=== PATIENT | female | born 1980 | race Caucasian/White ===

== ENCOUNTER 2021-03-20 13:46 | Emergency (ER) | payer BC, OTHER, SELFPAY ==
[2021-03-20 14:08] VITALS: BP 125/86; PULSE 95; RESP 18; TEMP 37.5; O2SAT 100; BMI 27.4
[2021-03-20 15:49] VITALS: BP 104/70; PULSE 85; TEMP 37.6; O2SAT 99
--- NOTE | 2021-03-20 15:59 | CTR_ITS ---
PROCEDURE INFORMATION: Exam: CT Abdomen And Pelvis With Contrast Exam date and time: 03/20/2021 3:59 PM Age: 41 years old Clinical indication: Abdominal pain; Prior surgery; Surgery date: 6+ months; Surgery type: Partial hysterectomy; Patient HX: Lower ab pain; Additional info: Rlq and llq abdominal pain, rebound tenderness TECHNIQUE: Imaging protocol: Computed tomography of the abdomen and pelvis with contrast. Radiation optimization: All CT scans at this facility use at least one of these dose optimization techniques: automated exposure control; mA and/or kV adjustment per patient size (includes targeted exams where dose is matched to clinical indication); or iterative reconstruction. Contrast material: OMNI 300; Contrast volume: 95 ml; Contrast route: INTRAVENOUS (IV); COMPARISON: CT abdomen pelvis w con* [id number] 01/26/2018 3:22 PM RADIATION DOSE METRICS: Total DLP (mGy-cm): 1332.33 FINDINGS: Liver: Normal. No mass. Gallbladder and bile ducts: Fluid-distended gallbladder. No wall thickening. The bile ducts are normal. Pancreas: Normal. No ductal dilation. Spleen: Normal. No splenomegaly. Adrenal glands: Normal. No mass. Kidneys and ureters: 3 mm nonobstructing inferior left renal calculus. New 2.1 cm cortical lesion in the anterior left kidney, Hounsfield units 24. Right kidney is unremarkable. No ureteral calculus or hydronephrosis. Stomach and bowel: Diverticulosis of the distal colon. Inflammation and fat stranding surrounding a single diverticulum in the mid sigmoid colon, consistent with acute diverticulitis. The remainder of the colon is unremarkable. The stomach and small bowel are normal. No obstruction. Appendix: The appendix is visualized and is normal. Intraperitoneal space: Mild pelvic ascites. No free air. Vasculature: Unremarkable. No abdominal aortic aneurysm. Lymph nodes: Unremarkable. No enlarged lymph nodes. Urinary bladder: Unremarkable as visualized. Reproductive: The uterus is absent. Normal ovaries with small follicles. Bones/joints: Unremarkable. No acute fracture. Soft tissues: Unremarkable. CT/CT abdomen pelvis w con* [id number] IMPRESSION: 1. Acute sigmoid diverticulitis. 2. New 2.1 cm cortical lesion in the left kidney, Hounsfield units 24. This does not meet the criteria for a simple benign cyst. Recommend non-emergent MRI without and with contrast or non-emergent CT without and with contrast. MRI is preferred for masses under 1.5 cm. 3. Nonobstructing left renal calculus. COMMENTS: Consistent with the [employer]'s Incidental Findings Committee white paper (J Am Edd Radiol 2018): Any incidental renal lesion less than 1 cm or classified as too small to characterize, or any incidental cystic renal lesion characterized as simple-appearing, is likely benign. No follow-up imaging is recommended for these lesions per consensus recommendations based on imaging criteria.
--- NOTE | 2021-03-20 16:01 | ED_ITS ---
Documented by User: MANOLO Gillespie 03/21/21 09:15 HPI - Abdominal Pain General: Chief Complaint: Abdominal Pain Stated Complaint: Abd Pain, rebound Tenderness, high wbc Time Seen by Provider: 03/20/21 15:52 History of Present Illness: Patient is a 41-year-old female comes to the ED with abdominal pain. Patient says symptoms started approximately 3 days ago. Patient was seen at [facility] earlier today and had an elevated white blood cell count and rebound tenderness of the abdomen so they sent her here to the ED for further evaluation. Today the abdominal pain got worse. Pain is described as a sharp pain in both right and left lower abdomen. Pain is rated currently an 8 out of 10. No improving or worsening factors noted. Shas nausea but denies any episodes of emesis. Patient has had some past medical history of endometriosis. She endorses feeling a little bit of pain in her bladder when she urinates. Denies any hematuria, vaginal bleeding, vaginal discharge, diarrhea, blood in stool. Associated Symptoms: Reports dysuria (Pain in bladder when urinating.) and nausea; Denies chills, constipation, diarrhea, fever(s), hematochezia, hematuria and vomiting Review of Systems Const: Denies: fever(s), chills or fatigue Eyes: Denies: change in vision or eye discomfort ENMT: Denies: throat pain, odynophagia, nasal discharge or nasal congestion Card: Denies: chest pain, palpitations, edema, swelling of feet/ankles, dyspnea on exertion or orthopnea Resp: Denies: dyspnea, productive cough or non-productive cough GI: Reports: abdominal pain and nausea; Denies: vomiting, diarrhea, constipation or hematochezia : Reports: dysuria (Pain in bladder when urinating.); Denies: flank pain, hematuria, vaginal bleeding or vaginal discharge Musc: Denies: neck pain, back pain or extremity swelling Skin/Breast: Denies: rash or new lesions Neuro: Denies: headache(s), numbness in extremities or weakness in extremities PFS ED PFSH: Medical History Endometriosis Family History Daughter No problems noted. Family/Other Diabetes paternal uncle Cancer of kidney paternal uncle Heart disease paternal aunt, paternal uncle Hypertension paternal aunt, paternal uncle CAD (coronary artery disease) paternal uncle Stroke paternal uncle Father Heart disease Hypertension CAD (coronary artery disease) Social History Smoking and tobacco status: never smoked Alcohol intake: never Female Reproductive History: Para: 2 Spontaneous abortions: Yes (1) Physical Exam Const: COMMON NORMALS: patient oriented x3 and alert GENERAL APPEARANCE: cooperative HENMT: COMMON NORMALS: normocephalic HEAD & SCALP: normocephalic MOUTH: Normal oral and palatal mucosa present THROAT: posterior oropharynx normal and uvula midline Eye: COMMON NORMALS: Equal, round and reactive pupils present and conjunctivae normal CONJUNCTIVA: Yes conjunctivae normal PUPIL: Yes Equal, round and reactive pupils present Neck/C-Spine: COMMON NORMALS: supple GENERAL: Yes normal visual inspection Resp: COMMON NORMALS: normal respiratory effort, No retractions, No use of accessory muscles and clear to auscultation bilaterally AUSCULTATION: clear to auscultation bilaterally Cardio: COMMON NORMALS: regular rate, regular rhythm, S1 normal heart sound present, S2 normal heart sound present, No gallops present (Cardio), No clicks present (Cardio), No murmurs present (Cardio) and Peripheral pulses 2+ throughout RATE: regular rate RHYTHM: regular rhythm HEART SOUNDS: S1 normal heart sound present and S2 normal heart sound present PERIPHERAL PULSES: Peripheral pulses 2+ throughout GI: COMMON NORMALS: Normal to inspection, nondistended, normoactive bowel sounds present, Soft to palpation and no masses PALPATION: Yes Soft to palpation, Yes Tenderness to palpation present (GI) Details: LLQ and RLQ and Yes Rebound tenderness present Details: other (Right and left lower abdomen) : COMMON NORMALS: Yes no CVA tenderness BLADDER/KIDNEY EXAM: Yes no CVA tenderness Back/Pelvis: COMMON NORMALS: no CVA tenderness Extremity: COMMON NORMALS: normal to inspection Neuro: COMMON NORMALS: patient oriented x3 SENSORIUM/ORIENTATION: Yes alert GAIT: Yes Normal gait present Skin: GENERAL SKIN EXAM: dry skin Course Vital Signs: Vital signs: Vital Signs Temperature 99.6 F 03/20/21 15:49 Pulse Rate 85 03/20/21 15:49 Respiratory Rate 16 03/20/21 16:45 Blood Pressure 104/70 03/20/21 15:49 Pulse Oximetry 99 03/20/21 15:49 MDM - Abdominal Pain Lab Data I reviewed the patient's lab results. : 03/20/21 18:00 03/20/21 18:00 Labs/Radiology: Radiology Impressions Abdomen/Pelvis CT 03/20/21 15:59 IMPRESSION: 1. Acute sigmoid diverticulitis. 2. New 2.1 cm cortical lesion in the left kidney, Hounsfield units 24. This does not meet the criteria for a simple benign cyst. Recommend non-emergent MRI without and with contrast or non-emergent CT without and with contrast. MRI is preferred for masses under 1.5 cm. 3. Nonobstructing left renal calculus. COMMENTS: Consistent with the [employer]'s Incidental Findings Committee white paper (J Am Edd Radiol 2018): Any incidental renal lesion less than 1 cm or classified as too small to characterize, or any incidental cystic renal lesion characterized as simple-appearing, is likely benign. No follow-up imaging is recommended for these lesions per consensus recommendations based on imaging criteria. Laboratory Results WBC 11.1 10^3/uL (4.0-10.0) H 03/20/21 18:00 RBC 3.54 10^6/uL (4.1-5.3) L 03/20/21 18:00 Hgb 11.0 g/dL (11.5-15.3) L 03/20/21 18:00 Hct 34.9 % (37.0-47.0) L 03/20/21 18:00 MCV 98.6 fl (81-99) 03/20/21 18:00 MCH 31.1 pg (28.0-34.0) 03/20/21 18:00 MCHC 31.5 g/dL (30.0-36.0) 03/20/21 18:00 RDW 13.1 % (12.1-15.1) 03/20/21 18:00 Plt Count 347 10^3/cmm (130-400) 03/20/21 18:00 MPV 9.8 fL (7.4-10.4) 03/20/21 18:00 Neut % (Auto) 76.8 % 03/20/21 18:00 Lymph % (Auto) 14.1 % 03/20/21 18:00 [place] % (Auto) 7.9 % 03/20/21 18:00 Eos % (Auto) 0.6 % 03/20/21 18:00 Baso % (Auto) 0.3 % 03/20/21 18:00 Neut # (Auto) 8.50 10^3/uL (1.8-7.7) H 03/20/21 18:00 Lymph # (Auto) 1.6 10^3/uL (0.8-4.8) 03/20/21 18:00 [place] # (Auto) 0.9 10^3/uL (0.2-0.9) 03/20/21 18:00 Eos # (Auto) 0.1 10^3/uL (0.0-0.8) 03/20/21 18:00 Baso # (Auto) 0.0 10^3/uL (0.0-0.1) 03/20/21 18:00 Nucleated RBC % (auto) 0 % 03/20/21 18:00 Nucleated RBCs # 0.0 /100WBC 03/20/21 18:00 Sodium 134 mmol/L (136-145) L 03/20/21 18:00 Potassium 3.3 mmol/L (3.5-5.1) L 03/20/21 18:00 Chloride 100 mmol/L (98-107) 03/20/21 18:00 Carbon Dioxide 22 mmol/L (22-29) 03/20/21 18:00 Anion Gap 15.3 (5-19) 03/20/21 18:00 BUN 9 mg/dL (6-20) 03/20/21 18:00 Creatinine 0.6 mg/dL (0.5-0.9) 03/20/21 18:00 GFR Calculation 110.2 mL/min (90-130) 03/20/21 18:00 Glucose 79 mg/dL (65-115) 03/20/21 18:00 Calculated Osmolality 276 mOsm/kg (285-295) L 03/20/21 18:00 Calcium 9.1 mg/dL (8.5-10.5) 03/20/21 18:00 Total Bilirubin 0.2 mg/dL (0.15-1.2) 03/20/21 18:00 AST 12 U/L (0-32) 03/20/21 18:00 ALT 7 U/L (0-33) 03/20/21 18:00 Alkaline Phosphatase 85 IU/L (35-105) 03/20/21 18:00 C-Reactive Protein 103.7 mg/L (0.0-4.9) H 03/20/21 18:00 Total Protein 7.1 g/dL (6.6-8.7) 03/20/21 18:00 Albumin 4.0 g/dL (3.5-5.2) 03/20/21 18:00 Globulin 3.1 g/dL (1.3-4.6) 03/20/21 18:00 Lipase 29 U/L (13-60) 03/20/21 18:00 HCG, Qual Negative (Negative) 03/20/21 18:00 Discharge Plan Discharge Patient Disposition: Home Clinical Impression: Diverticulitis Condition: Stable Prescriptions: New Cipro 500 mg tablet 500 mg PO BID Qty: 14 0RF metronidazole 500 mg tablet 500 mg PO BID 7 Days Qty: 14 0RF hydrocodone-acetaminophen 5-325 mg tablet 1 tab PO Q6H PRN (Reason: pain) Qty: 7 0RF ondansetron 4 mg tablet,disintegrating 4 mg PO Q8H PRN (Reason: nausea and vomiting) Qty: 7 0RF No Action propranolol 20 mg tablet 20 mg PO DAILY 0RF triamterene-hydrochlorothiazid 37.5-25 mg tablet 1.5 tab PO DAILY 0RF Label Comments: 37.5mg/12.5mg 1.5 tablets daily docusate sodium [Colace] 100 mg capsule 100 mg PO DAILY 0RF Orilissa 150 mg tablet 150 mg PO DAILY Qty: 90 3RF ibuprofen 800 mg tablet 800 mg PO TID PRN (Reason: pain) Qty: 90 3RF Discharge Orders: Discharge ED (Routine); Ordered 03/20/21 Ordered By: Clint Paz Referrals: Donny Cho, [Primary Care Provider] - Discharge Diet: Advance as tolerated Discharge Activity: Increase activity as tolerated Patient Instructions: Diverticulitis (ED), Diverticulitis Diet (ED), Opioid Safety Activity Restrictions/Additional Instructions: Home and rest. Clear liquid diet for the next 24 hours then increase to a full liquid diet until pain resolves. Follow-up with primary care for further instruction. Return to the ER for worsening symptoms such as high fever greater than 100.4, or uncontrolled pain. Sign Out Sign Out Data: Patient Sign Out occurred on 03/20/21 at 17:02. Patient's care was discussed, and care was transferred from to Clint Paz. Post-Handoff Eval: Patient reported some mild pain and discomfort in the lower abdomen. Patient appeared mildly unwell. No acute distress was noted. 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 Family/Other Diabetes paternal uncle Cancer of kidney paternal uncle Heart disease paternal aunt, paternal uncle Hypertension paternal aunt, paternal uncle CAD (coronary artery disease) paternal uncle Stroke paternal uncle Father Heart disease Hypertension CAD (coronary artery disease) Social History Smoking and tobacco status: never smoked Alcohol intake: never Course Vital Signs: Vital signs: Vital Signs Temperature 99.6 F 03/20/21 15:49 Pulse Rate 85 03/20/21 15:49 Respiratory Rate 16 03/20/21 16:45 Blood Pressure 104/70 03/20/21 15:49 Pulse Oximetry 99 03/20/21 15:49 MDM - Abdominal Pain Medical Decision Making 41-year-old female was referred to the emergency room for evaluation of lower abdominal pain. Patient reports illness for 3 days. On exam abdomen was soft with some rebound tenderness in the lower abdomen. Bowel sounds were present. Skin was warm and dry. Vital signs were normal. Differential diagnosis includes but not limited to appendicitis, cystitis, constipation, diverticulitis. Patient had a reported fourteen thousand white count at the [facility] when she was referred to the ER. CT scan of the abdomen and pelvis noted acute sigmoid diverticulitis, a 2.1 cm cortical lesion to the left kidney, and nonobstructing left renal calculus. I feel the patient probably has diverticulitis which is suggestive of her exam and imaging. Patient be started on Cipro 500 mg twice a day for the next 7 days, and Flagyl 500 mg twice a day for the next 7 days. Patient will also be covered for pain with hydrocodone/acetaminophen 5-325 mg, and ondansetron for nausea and vomiting. Reviewed exam with patient with recommendations for treatment and follow-up. Lab Data : 03/20/21 18:00 03/20/21 18:00 Labs/Radiology: Radiology Impressions Abdomen/Pelvis CT 03/20/21 15:59 IMPRESSION: 1. Acute sigmoid diverticulitis. 2. New 2.1 cm cortical lesion in the left kidney, Hounsfield units 24. This does not meet the criteria for a simple benign cyst. Recommend non-emergent MRI without and with contrast or non-emergent CT without and with contrast. MRI is preferred for masses under 1.5 cm. 3. Nonobstructing left renal calculus. COMMENTS: Consistent with the [employer]'s Incidental Findings Committee white paper (J Am Edd Radiol 2018): Any incidental renal lesion less than 1 cm or classified as too small to characterize, or any incidental cystic renal lesion characterized as simple-appearing, is likely benign. No follow-up imaging is recommended for these lesions per consensus recommendations based on imaging criteria. Laboratory Results WBC 11.1 10^3/uL (4.0-10.0) H 03/20/21 18:00 RBC 3.54 10^6/uL (4.1-5.3) L 03/20/21 18:00 Hgb 11.0 g/dL (11.5-15.3) L 03/20/21 18:00 Hct 34.9 % (37.0-47.0) L 03/20/21 18:00 MCV 98.6 fl (81-99) 03/20/21 18:00 MCH 31.1 pg (28.0-34.0) 03/20/21 18:00 MCHC 31.5 g/dL (30.0-36.0) 03/20/21 18:00 RDW 13.1 % (12.1-15.1) 03/20/21 18:00 Plt Count 347 10^3/cmm (130-400) 03/20/21 18:00 MPV 9.8 fL (7.4-10.4) 03/20/21 18:00 Neut % (Auto) 76.8 % 03/20/21 18:00 Lymph % (Auto) 14.1 % 03/20/21 18:00 [place] % (Auto) 7.9 % 03/20/21 18:00 Eos % (Auto) 0.6 % 03/20/21 18:00 Baso % (Auto) 0.3 % 03/20/21 18:00 Neut # (Auto) 8.50 10^3/uL (1.8-7.7) H 03/20/21 18:00 Lymph # (Auto) 1.6 10^3/uL (0.8-4.8) 03/20/21 18:00 [place] # (Auto) 0.9 10^3/uL (0.2-0.9) 03/20/21 18:00 Eos # (Auto) 0.1 10^3/uL (0.0-0.8) 03/20/21 18:00 Baso # (Auto) 0.0 10^3/uL (0.0-0.1) 03/20/21 18:00 Nucleated RBC % (auto) 0 % 03/20/21 18:00 Nucleated RBCs # 0.0 /100WBC 03/20/21 18:00 Sodium 134 mmol/L (136-145) L 03/20/21 18:00 Potassium 3.3 mmol/L (3.5-5.1) L 03/20/21 18:00 Chloride 100 mmol/L (98-107) 03/20/21 18:00 Carbon Dioxide 22 mmol/L (22-29) 03/20/21 18:00 Anion Gap 15.3 (5-19) 03/20/21 18:00 BUN 9 mg/dL (6-20) 03/20/21 18:00 Creatinine 0.6 mg/dL (0.5-0.9) 03/20/21 18:00 GFR Calculation 110.2 mL/min (90-130) 03/20/21 18:00 Glucose 79 mg/dL (65-115) 03/20/21 18:00 Calculated Osmolality 276 mOsm/kg (285-295) L 03/20/21 18:00 Calcium 9.1 mg/dL (8.5-10.5) 03/20/21 18:00 Total Bilirubin 0.2 mg/dL (0.15-1.2) 03/20/21 18:00 AST 12 U/L (0-32) 03/20/21 18:00 ALT 7 U/L (0-33) 03/20/21 18:00 Alkaline Phosphatase 85 IU/L (35-105) 03/20/21 18:00 C-Reactive Protein 103.7 mg/L (0.0-4.9) H 03/20/21 18:00 Total Protein 7.1 g/dL (6.6-8.7) 03/20/21 18:00 Albumin 4.0 g/dL (3.5-5.2) 03/20/21 18:00 Globulin 3.1 g/dL (1.3-4.6) 03/20/21 18:00 Lipase 29 U/L (13-60) 03/20/21 18:00 HCG, Qual Negative (Negative) 03/20/21 18:00 Discharge Plan Discharge Patient Disposition: Home Clinical Impression: Diverticulitis Condition: Stable Prescriptions: New Cipro 500 mg tablet 500 mg PO BID Qty: 14 0RF metronidazole 500 mg tablet 500 mg PO BID 7 Days Qty: 14 0RF hydrocodone-acetaminophen 5-325 mg tablet 1 tab PO Q6H PRN (Reason: pain) Qty: 7 0RF ondansetron 4 mg tablet,disintegrating 4 mg PO Q8H PRN (Reason: nausea and vomiting) Qty: 7 0RF No Action propranolol 20 mg tablet 20 mg PO DAILY 0RF triamterene-hydrochlorothiazid 37.5-25 mg tablet 1.5 tab PO DAILY 0RF Label Comments: 37.5mg/12.5mg 1.5 tablets daily docusate sodium [Colace] 100 mg capsule 100 mg PO DAILY 0RF [place] 150 mg tablet 150 mg PO DAILY Qty: 90 3RF ibuprofen 800 mg tablet 800 mg PO TID PRN (Reason: pain) Qty: 90 3RF Discharge Orders: Discharge ED (Routine); Ordered 03/20/21 Ordered By: Clint Paz Referrals: Donny Cho DO [Primary Care Provider] - Discharge Diet: Advance as tolerated Discharge Activity: Increase activity as tolerated Patient Instructions: Diverticulitis (ED), Diverticulitis Diet (ED), Opioid Safety Activity Restrictions/Additional Instructions: Home and rest. Clear liquid diet for the next 24 hours then increase to a full liquid diet until pain resolves. Follow-up with primary care for further instruction. Return to the ER for worsening symptoms such as high fever greater than 100.4, or uncontrolled pain. Sign Out Sign Out Data: Patient Sign Out occurred on 03/20/21 at 17:02. Patient's care was discussed, and care was transferred from to Clint Paz. Post-Handoff Eval: Patient reported some mild pain and discomfort in the lower abdomen. Patient appeared mildly unwell. No acute distress was noted. 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
[2021-03-20 16:45] VITALS: RESP 16
[2021-03-20] MEDS: morphine 4 mg/mL SDV 1 mL IVP ×2 (16:45→18:29)
[2021-03-20] MEDS: ondansetron 2 mg/ML SDV 2 mL 4 MG IVP (16:47)
[2021-03-20] MEDS: sodium chloride 0.9% 500 ML 999 ML IV (16:47)
[2021-03-20] MEDS: iohexol 300 mg/mL 100 mL Btl IV (17:27)
[2021-03-20 18:11] LABS: Basophils % 0.3 %; Eosinophils # 0.1 10^3/uL (0.0-0.8); Eosinophils % 0.6 %; Hematocrit 34.9 % (37.0-47.0); Lymphocytes # 1.6 10^3/uL (0.8-4.8); Lymphocytes % 14.1 %; Mean Corpuscular HGB Conc 31.5 g/dL (30.0-36.0); Mean Corpuscular Hemoglobin 31.1 pg (28.0-34.0); Mean Corpuscular Volume 98.6 fl (81-99); Mean Platelet Volume 9.8 fL (7.4-10.4); Monocytes # 0.9 10^3/uL (0.2-0.9); Monocytes % 7.9 %; Neutrophils % 76.8 %; Nucleated Red Blood Cells % 0 %; Platelet Count 347 10^3/cmm (130-400); Red Blood Count 3.54 10^6/uL (4.1-5.3); Red Cell Distribution Width 13.1 % (12.1-15.1); White Blood Count 11.1 10^3/uL (4.0-10.0)
[2021-03-20 18:29] LABS: HCG, Serum Qual Negative (Negative)
[2021-03-20 18:53] LABS: Alanine Aminotransferase 7 U/L (0-33); Alkaline Phosphatase 85 IU/L (35-105); Aspartate Amino Transferase 12 U/L (0-32); Blood Urea Nitrogen 9 mg/dL (6-20); Calcium 9.1 mg/dL (8.5-10.5); Carbon Dioxide 22 mmol/L (22-29); Chloride 100 mmol/L (98-107); Globulin 3.1 g/dL (1.3-4.6); Glomerular Filtration Rate 110.2 mL/min (90-130); Glucose 79 mg/dL (65-115); Lipase 29 U/L (13-60); Osmolality Calculated 276 mOsm/kg (285-295); Sodium 134 mmol/L (136-145); Total Bilirubin 0.2 mg/dL (0.15-1.2); Total Protein 7.1 g/dL (6.6-8.7)
[2021-03-20 18:54] LABS: C Reactive Protein 103.7 mg/L (0.0-4.9)
[2021-03-20 19:05] LABS: Anion Gap 15.3 (5-19); Potassium 3.3 mmol/L (3.5-5.1)
== END 2021-03-20 18:54 | disposition home or self-care (01) ==
PROVIDERS: Physician Assistant; Emergency Provider Nurse Practitioner Family; PCP Electrodiagnostic Medicine
DX: K57.92 Diverticulitis of intestine, part unspecified, without perforation or abscess without bleeding (principal)
CPT/HCPCS: 36415; 74177; 80053; 83690; 84703; 85025; 86140; 96374; 96375; 96376; 99283; J2270; J2405; J7040; Q9967

== ENCOUNTER 2021-04-02 07:35 | Outpatient (CLI) | payer OTHER, SELFPAY ==
--- NOTE | 2021-04-02 07:50 | US_ITS ---
WS: [id number] RIGHT UPPER QUADRANT ULTRASOUND HISTORY: BELCHING SYMPTOMS COMPARISON: 09/22/2018 and 08/03/2013 Liver: 14.7 cm in length. Normal size liver. Very mild coarsened echotexture throughout. Surface of t he liver is slightly irregular. These findings are new since 2013. No mass or bile duct dilatation. Portal Vein: Normal hepatopetal flow with monophasic waveform. Gallbladder: Normally distended gallbladder with no stones or wall thickening. CBD: 0.5 cm Pancreas: Normal size and echogenicity. Right kidney: 9.9 cm in length. Normal size and echogenicity. No hydronephrosis or mass. Aorta and IVC: Unremarkable abdominal aorta and IVC. No ascites. US/US gall bladder [id number] IMPRESSION: 1. Normal gallbladder. 2. Very mild coarse echotexture throughout the liver. May represent early find ings of cirrhosis. The recent CT from 03/20/2021 was negative.
--- NOTE | 2021-04-02 07:50 | MR_ITS ---
WS: [id number] INDICATION: Renal lesion. TECHNIQUE: MRI of the abdomen without and with gadolinium enhancement. Coronal 3-D T1, single shot FS E, axial T1 and T2 postgadolinium imaging. In and out of phase axial imaging. FINDINGS: Comparison CT March 20, 2021 Previously described LEFT renal lesion seen on the recent CT is stable in appearance measuring 2.0 x 1.7 CM. This lesion demonstrates T2 hyperintensity and no significant enhancement compatible with gilda al cyst. No enhancing renal lesions. No hydronephrosis in either kidney. Normal liver. Normal portal vein and splenic vein. Normal gallbladder. Normal pancreas. Adrenal gland s are normal. Normal spleen. Normal caliber upper abdominal aorta. MR/MR abdomen wo/w con* [id number] IMPRESSION: 1. 2.0x1.7 cm LEFT renal lesion compatible with renal cyst. 2. No enhancing renal lesions. 3. No hydronephrosis in either kidney. 4. No other significant changes from recent CT.
[2021-04-02] MEDS: gadobenate dimeglumine 20 mL vial IV (11:17)
== END 2021-04-02 07:36 | disposition home or self-care (01) ==
PROVIDERS: PCP Electrodiagnostic Medicine; Visit Provider Nurse Practitioner
DX: N28.9 Disorder of kidney and ureter, unspecified (principal); R14.2 Eructation
CPT/HCPCS: 74183; 76705

== ENCOUNTER 2021-05-13 07:19 | Outpatient (CLI) | payer OTHER, SELFPAY ==
--- NOTE | 2021-05-13 07:25 | NM_ITS ---
WS: [id number] NUCLEAR MEDICINE HIDA SCAN WITH GALLBLADDER EJECTION FRACTION HISTORY: NAUSEA COMPARISON: Gallbladder ultrasound 04/02/2019. TECHNIQUE: The patient was intravenously injected with 7.6 mCi of TC99m Mebrofenin. Immediate imaging over the right upper quadrant was followed by 5 minute image and additional images for a total of 60 minutes. Normal uptake of radiotracer throughout the liver. Activity identified in the gallbladder at 10 minutes and well distended by 60 minutes. Activity in the proximal small bowel was seen by 60 minutes. Good washout of the radiotracer from the liver by 60 minutes. The patient then drank 8 ounces of Ensure Plus. Ejection fraction at 60 minutes was 89%. Normal GB ej ection fraction is 35-75%. Post fatty meal symptoms: None. NM/NM hepatobiliary w phar* [id number] IMPRESSION: 1. Normal HIDA scan. 2. Normal gallbladder ejection fraction.
== END 2021-05-13 07:20 | disposition home or self-care (01) ==
LOC: NM 07:23
PROVIDERS: PCP Electrodiagnostic Medicine; Visit Provider Nurse Practitioner
DX: R11.0 Nausea (principal)
CPT/HCPCS: 78227; A9537

== ENCOUNTER → 2021-06-02 15:02 | Outpatient (BNVA) | payer OTHER, BC, SELFPAY | PROVIDERS: PCP Electrodiagnostic Medicine; Visit Provider Urology | DX: N28.89 Other specified disorders of kidney and ureter (principal); N28.1 Cyst of kidney, acquired | CPT/HCPCS: 81003 ==

== ENCOUNTER → 2021-06-09 09:10 | Outpatient (BNVA) | payer OTHER, BC, SELFPAY | PROVIDERS: PCP Electrodiagnostic Medicine; Visit Provider Obstetrics & Gynecology | DX: R10.2 Pelvic and perineal pain (principal); G89.29 Other chronic pain; N80.9 Endometriosis, unspecified; Z01.812 Encounter for preprocedural laboratory examination | CPT/HCPCS: 80053; 81000; 85025; 86850; 86900 ==

== ENCOUNTER 2021-06-11 10:57 | Observation (INO) | payer OTHER, BC, SELFPAY ==
[2021-06-06 11:12] VITALS: BMI 27.4
--- NOTE | 2021-06-06 11:27 | P.ANESASSM_ITS ---
Pre-Anesthetic Assessment Height/Weight: Height 1.63 m Weight 72.575 kg Operation Date: 06/11/21 08:25 Proposed Procedures p Laparoscopic Oophorectomy 79792/n80.9/r10.2/g89.29(Bilateral) - Garrett Rico MD Familial anesthetic complications: None Social No alcohol and No tobacco Airway Mallampati: Class I Dentition: full Pulmonary None reported CV/HEM tachycardic on propanolol None reported Hepatic None reported GI None reported Metabolic None reported Musc/skel None reported Neuropsych None reported Anesthetic Plan ASA status: 1 Anesthesia: General Risk of > 500 ml blood loss (7ml/kg in children): No Medications/Allergies Home Medications Medication Instructions Recorded Confirmed Last Taken Type propranolol 20 mg tablet 20 mg PO DAILY tab 04/26/20 06/06/21 Unknown History triamterene 37.5 1.5 tab PO DAILY tab 04/26/20 06/06/21 Unknown History mg-hydrochlorothiazide 25 mg tablet elagolix 150 mg tablet (Orilissa) 150 mg PO DAILY #90 tab 06/28/20 06/06/21 Unknown Rx ibuprofen 800 mg tablet 800 mg PO TID PRN #90 tab 08/19/20 06/06/21 Unknown Rx ondansetron 4 mg disintegrating 4 mg PO Q8H PRN #7 tab 03/20/21 06/06/21 Unknown Rx tablet B-complex with vitamin C 1 tab PO DAILY 05/12/21 06/06/21 Unknown History Immune Health 1 tab PO DAILY 05/12/21 06/06/21 Unknown History cholecalciferol (vitamin D3) 125 125 mcg PO DAILY 05/12/21 06/06/21 Unknown History mcg (5,000 unit) capsule Allergies Allergy/AdvReac Type Severity Reaction Status Date / Time No Known Allergies Allergy Verified 06/02/21 15:05 [facility] Anesthesia Medical History (Updated 06/06/21 @ 11:10 by Soraya Artis) Endometriosis Family History Daughter No problems noted. Family/Other Diabetes paternal uncle Cancer of kidney paternal uncle Heart disease paternal aunt, paternal uncle Hypertension paternal aunt, paternal uncle CAD (coronary artery disease) paternal uncle Stroke paternal uncle Father Heart disease Hypertension CAD (coronary artery disease) Social History Smoking and tobacco status: never smoked Alcohol intake: never Marital status: Current occupational status: employed History of recent travel: No Female Reproductive History Para: 2 Spontaneous abortions: Yes (1) Data Anesthesia Cardiac Studies: No Data to Display
[2021-06-11] VITALS (23 sets, daily range): BP systolic 82–120; BP diastolic 54–82; PULSE 45–95; RESP 11–22; TEMP 36.3–36.8; O2SAT 93–100
[2021-06-11] MEDS: sodium chloride 0.9% 500 ML IV (07:34)
--- NOTE | 2021-06-11 07:36 | P.ANESUD_ITS ---
Pre-Anesthetic Update Pre-Anesthetic Assessment: Date of Surgery/Procedure: 06/11/21 Preop Emilie gnosis: Pelvic pain, endometriosis Proposed Procedure: Operation Date: 06/11/21 08:25 Proposed Procedures p Laparoscopic Oophorectomy 62126/n80.9/r10.2/g89.29(Bilateral) - Garrett Rico MD Any changes to Pre-Anesthetic Assessment?: No Exam: Pre-Anes Outpt Exam: alert, oriented x 3, clear to auscultation bilaterally and regular rate & rhythm Cardiac Studies: No Data to Display
--- NOTE | 2021-06-11 08:02 | W.PM.OPSUD ---
Surgery/Procedure H&P Update DATE OF PROCEDURE: June 11, 2021 DATE H&P PERFORMED: 06/09/21 H&P UPDATE INFORMATION: I have reviewed H&P completed within last 30 days, I have examined patient prior to procedure and No changes to prior documentation PREOP DIAGNOSIS: Pelvic pain, endometriosis PLANNED PROCEDURE: Operation Date: 06/11/21 08:25 Proposed Procedures p Laparoscopic Oophorectomy 19915/n80.9/r10.2/g89.29(Bilateral) - Garrett Rico MD
[2021-06-11] MEDS: midazolam 1 mg/mL INJ 2 mL 2 MG IVP (08:09)
[2021-06-11] MEDS: sodium chloride 0.9% 1,000 ML 30 ML IV (08:10)
--- NOTE | 2021-06-11 08:50 | SUR.OPER ---
family updated of surgical status
--- NOTE | 2021-06-11 09:39 | P.OP_ITS ---
Operative Report Date of procedure: June 11, 2021 Pre-op diagnosis: Preop Diagnosis Pelvic pain, endometriosis Post-op diagnosis: Same as above Procedure done: Laparoscopic bilateral salpingo-oophorectomy Lysis of adhesions. Pathology: Left and right fallopian tubes and ovaries Surgeon: Garrett Rico MD Estimated blood loss (mL): 10 IV fluids (mL): 800 Urine output (mL): 400 Complications: None Findings: Normal left and right fallopian tube and ovaries. Omental adhesions to the right side abdominal wall Brief History: Mrs. Palma 41-year-old female post hysterectomy due to chronic pelvic pain and endometriosis. She had tried different treatment modalities for endometriosis without success. After hysterectomy she was started with Orilissa with she was effective in controlling her pain but she started to complain with side effects and decided to stop using the Orilissa and requested oophorectomy. She was extensively counseled regarding the effect of oophorectomy at her age and the risk of osteoporosis and the recommendation for hormone replacement therapy after surgery for postmenopausal symptoms and prevention of osteoporosis. Procedure: After informed consent, the patient was taken to the operating room where general anesthesia was administered. The patient was examined under anesthesia and found to have a normal uterus with normal adnexa. She was placed in the dorsal lithotomy position and prepped and draped in sterile fashion. Pre- Procedure Time-Out verifying the correct patient identity, correct procedure verified with consent, correct site and side, correct patient position, availability of correct implants and any special equipment or requirements was performed and acknowledge by the OR team. A weighted speculum was placed in the vagina, and the anterior lip of cervix was grasped with the single toothed tenaculum. A uterine manipulator was advanced into the endocervical. Tenaculum was removed after uterine manipulator was secured. The speculum was removed from the vagina. An intraumbilical incision was made with a scalpel. While tenting up on the abdomen, a Verres needle with sleeve was admitted into the intra-abdominal cavity. A saline drop test was performed and noted to be within normal limits. Pneumoperitoneum was attained with 4 liters of carbon dioxide. The Verres needle was removed. A 5 mm trocar and sleeve were admitted into the abdomen and laparoscopic confirmation of location was achieved, A second incision was made 3 cm above the symphysis pubis, and a 5 mm trocar and sleeve were admitted into the abdomen under direct, laparoscopic visualization without complication. A 5 mm blunt probe was advanced through the second trocar sleeve, and light manipulation to assess the abdomen and pelvis was performed. A survey revealed normal abdominal anatomy but omental adhesions were noted to the right side of abdominal wall. The pelvic survey shows normal left and right adnexa. The suprapubic 5 mm trocar was changed for a 10 mm trocar to be able to pass an endobag. Then the right side Infundibular ligament was identified. The ureter was confirmed along the pelvic side wall and peristalsis was noted. The voyant device was then used to clamp, sealed and transcepted at middistance, again being sure to be clear of the ureter and the fallopian tube and ovary were excised and removed using an endo bag on second attempt because the first endobag did not deployed correctly. Then the same process was then repeated on the left side removing the left fallopina tube and ovary without complications. Good hemostasis was assure on both sides. Then with the Voyant device the omental adhesions the right side abdominal wall were lized without complications. The instruments were removed under direct visualization to ensure hemostasis from incision. Carbon dioxide was allowed to escape from the abdomen. Then the extended suprapubic incision was closed in layers in the usual manner the fascia with 2-0 Vicryl and then the skin in a subcuticular fashion with 3-0 Vicryl. Intraumbilical incision was closed with 3-0 Vicryl in a pursestring fashion. Then Dermabond was applied all laparoscopic incisions. The instruments were removed from the vagina, and excellent hemostasis was noted. The patient tolerated the procedure well, and sponge, lap and needle count were correct times two. The patient taken to the recovery room in good condition.
[2021-06-11] MEDS: fentaNYL 50 mcg/mL INJ 2mL IVP ×2 (09:58→10:05)
[2021-06-11] MEDS: HYDROmorphone 1 mg/mL INJ 1 mL 0.5 MG IVP (10:13)
[2021-06-11 10:29] LABS: Alanine Aminotransferase 10 U/L (0-33); Albumin Level 4.3 g/dL (3.5-5.2); Alkaline Phosphatase 69 IU/L (35-105); Aspartate Amino Transferase 14 U/L (0-32); Blood Urea Nitrogen 15 mg/dL (6-20); Calcium 8.7 mg/dL (8.5-10.5); Carbon Dioxide 26 mmol/L (22-29); Chloride 104 mmol/L (98-107); Creatinine Clr Calc Pharmacy 80.3191; Globulin 2.1 g/dL (1.3-4.6); Glucose 106 mg/dL (65-115); Osmolality Calculated 287 mOsm/kg (285-295); Sodium 138 mmol/L (136-145); Total Bilirubin 0.2 mg/dL (0.15-1.2); Total Protein 6.4 g/dL (6.6-8.7)
[2021-06-11 10:36] LABS: Anion Gap 12.2 (5-19); Potassium 4.2 mmol/L (3.5-5.1)
[2021-06-11] MEDS: HYDROcodone-acetaminophen 5-325 mg Tablet PO ×3 (11:22→23:22)
[2021-06-11] MEDS: ketorolac 30 mg/mL INJ IVP ×3 (11:23→23:22)
[2021-06-11] MEDS: dextrose 5%-lactated ringers 1,000 ML 125 ML IV (11:42)
--- NOTE | 2021-06-11 12:39 | ANE.PACU2 ---
Inpatient post-anesthesia follow up: Airway intact: Yes Vital signs: Temperature 97.9 F Pulse Rate 51 Respiratory Rate 19 Blood Pressure 82/56 Pulse Oximetry 95 Oxygen Delivery Me thod Room Air Oxygen Flow Rate Fraction of Inspir ed Oxygen Hydration adequate: Yes Nausea and vomiting: No Pain level: 4 Mental status: Baseline
[2021-06-11] MEDS: docusate sodium 100 mg Capsule PO (17:21)
[2021-06-12 04:30] VITALS: BP 119/70; PULSE 84; RESP 17; TEMP 36.9; O2SAT 96
[2021-06-12] MEDS: HYDROcodone-acetaminophen 5-325 mg Tablet PO (05:34)
[2021-06-12] MEDS: ibuprofen 800 mg tablet PO (05:35)
[2021-06-12 05:38] LABS: Hematocrit 33.3 % (37.0-47.0); Hemoglobin 10.6 g/dL (11.5-15.3); Mean Corpuscular HGB Conc 31.8 g/dL (30.0-36.0); Mean Corpuscular Hemoglobin 30.2 pg (28.0-34.0); Mean Corpuscular Volume 94.9 fl (81-99); Mean Platelet Volume 10.1 fL (7.4-10.4); Platelet Count 366 10^3/cmm (130-400); Red Blood Count 3.51 10^6/uL (4.1-5.3); Red Cell Distribution Width 15.4 % (12.1-15.1); White Blood Count 15.8 10^3/uL (4.0-10.0)
--- NOTE | 2021-06-12 06:48 | PM.OBGYDC ---
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 Palma 41-year-old female post hysterectomy with a history of endometriosis chronic pelvic pain. Tried multiple options to control pelvic pain due to endometriosis. Treated with Orilissa which helped with the current pelvic pain but the patient started complaining about side effects with Orilissa inspite of effectiveness to control her pain. Pain will be some every time she stopped Orilissa. But she does not want to continue with Orilissa due to side effects and decided to have an oophorectomy. Hospital Course Hospital Course Mrs. Palma 41-year-old female with a history of chronic pelvic pain endometriosis post hysterectomy was admitted for planned bilateral laparoscopic salpingo-oophorectomy. During the procedure right side abdominal omental adhesions were noted. The laparoscopic bilateral salpingo-oophorectomy and lysis of adhesions were performed without complications. Overnight observation uneventful. Urine output adequate. Tolerating diet well. Pain well under control with medication. She is afebrile and hemodynamically stable postoperative day 1 Physical Exam Narrative: GA: Alert and oriented ?3. HEENT: WNL. Heart: Regular rate and rhythm. Lungs: Clear to auscultation bilaterally. Abdomen: Bowel sounds present, minimal tenderness, incision clean and dry, no redness, pain or edema. JAVA ARCHITECT: No bleeding. Extremities: No edema, no cyanosis, no calves pain. Urinary Catheter Management: Ferreira Latex: Cath Placed During This Visit: yes, but has since been removed by the nurse Reason for Continuing Indwelling Catheter: Decision to DC Catheter Urinary Catheter Date of Insertion: 06/11/21 Urinary Catheter Time of Insertion: 08:33 Date Urinary Catheter Removed: 06/11/21 Time Urinary Catheter Discontinued: 19:45 History History History 3 Term 2 Miscarriages/Ectopic 1 0 Living Children 2 Discharge Data Studies Completed and Pending Pending at discharge Category Date Time Status ES surgery / GI images Routine Exams 06/11/21 07:58 Taken Pathology: Surgical [PTH] Routine Pth 06/11/21 09:43 Received Laboratory Results WBC 15.8 10^3/uL (4.0-10.0) H 06/12/21 05:17 RBC 3.51 10^6/uL (4.1-5.3) L 06/12/21 05:17 Hgb 10.6 g/dL (11.5-15.3) L 06/12/21 05:17 Hct 33.3 % (37.0-47.0) L 06/12/21 05:17 MCV 94.9 fl (81-99) 06/12/21 05:17 MCH 30.2 pg (28.0-34.0) 06/12/21 05:17 MCHC 31.8 g/dL (30.0-36.0) 06/12/21 05:17 RDW 15.4 % (12.1-15.1) H 06/12/21 05:17 Plt Count 366 10^3/cmm (130-400) 06/12/21 05:17 MPV 10.1 fL (7.4-10.4) 06/12/21 05:17 Sodium 138 mmol/L (136-145) 06/11/21 09:50 Potassium 4.2 mmol/L (3.5-5.1) 06/11/21 09:50 Chloride 104 mmol/L (98-107) 06/11/21 09:50 Carbon Dioxide 26 mmol/L (22-29) 06/11/21 09:50 Anion Gap 12.2 (5-19) 06/11/21 09:50 BUN 15 mg/dL (6-20) 06/11/21 09:50 Creatinine 0.9 mg/dL (0.5-0.9) 06/11/21 09:50 GFR Calculation 69.0 mL/min (90-130) L 06/11/21 09:50 Glucose 106 mg/dL (65-115) 06/11/21 09:50 Calculated Osmolality 287 mOsm/kg (285-295) 06/11/21 09:50 Calcium 8.7 mg/dL (8.5-10.5) 06/11/21 09:50 Total Bilirubin 0.2 mg/dL (0.15-1.2) 06/11/21 09:50 AST 14 U/L (0-32) 06/11/21 09:50 ALT 10 U/L (0-33) 06/11/21 09:50 Alkaline Phosphatase 69 IU/L (35-105) 06/11/21 09:50 Total Protein 6.4 g/dL (6.6-8.7) L 06/11/21 09:50 Albumin 4.3 g/dL (3.5-5.2) 06/11/21 09:50 Globulin 2.1 g/dL (1.3-4.6) 06/11/21 09:50 Vitals Last Vital Signs Temp 98.4 F 06/12/21 04:30 Pulse 84 06/12/21 04:30 Resp 17 06/12/21 04:30 BP 119/70 06/12/21 04:30 Pulse Ox 96 06/12/21 04:30 Discharge Plan Discharge Patient Disposition: Home Condition: Stable Prescriptions: New hydrocodone-acetaminophen 5-325 mg tablet 1 tab PO Q4H PRN (Reason: pain) Qty: 20 0RF acetaminophen 325 mg capsule 325 mg PO Q4H PRN (Reason: fever or pain) Qty: 60 0RF docusate sodium [Colace] 100 mg capsule 100 mg PO BID Qty: 60 0RF ibuprofen 800 mg tablet 800 mg PO TID PRN (Reason: pain) Qty: 60 0RF potassium chloride 10 mEq capsule, extended release 10 meq PO DAILY Qty: 60 0RF ferrous sulfate [Iron (ferrous sulfate)] 325 mg (65 mg iron) tablet 325 mg PO BID Qty: 60 0RF Continued propranolol 20 mg tablet 20 mg PO DAILY 0RF triamterene-hydrochlorothiazid 37.5-25 mg tablet 1.5 tab PO DAILY 0RF Label Comments: 37.5mg/12.5mg 1.5 tablets daily Orilissa 150 mg tablet 150 mg PO DAILY Qty: 90 3RF cholecalciferol (vitamin D3) 125 mcg (5,000 unit) capsule 125 mcg PO DAILY 0RF B-complex with vitamin C Tablet 1 tab PO DAILY 0RF Immune Health 1 tab PO DAILY 0RF ibuprofen 800 mg tablet 800 mg PO TID PRN (Reason: pain) Qty: 90 3RF ondansetron 4 mg tablet,disintegrating 4 mg PO Q8H PRN (Reason: nausea and vomiting) Qty: 7 0RF Discharge Orders: Discharge Order (Routine); Ordered 06/12/21 Ordered By: Garrett Rico Referrals: Garrett Rico MD [Physician] - 2 weeks Discharge Diet: Advance as tolerated and Usual diet Discharge Activity: Limit activity as instructed Patient Instructions: Opioid Safety, Laparoscopy, Lysis of Abdominal Adhesions (GEN), Laparoscopic Oophorectomy (GEN), Salpingo-Oophorectomy (GEN) Activity Restrictions/Additional Instructions: 1. Please call [facility] clinic on next working day to make your post-operative appointment in 2 weeks. 2. Please stay home until you come back to the clinic on first post-operative check up. 3. Please follow instructions on your medications CAREFULLY. 4. If you have abdominal incision, do not cover it unless dressing is necessary because of drainage. OK to shower, but avoid bath. Leave steri-strips until they fall off. If they are still on one week after surgery, you may remove them. 5. If you had vaginal surgery or vaginal repair, Dr. Rico may instruct you to take SITZ bath. 6. Yellow, blood tinged odorous vaginal discharge is usually normal after hysterectomy or vaginal surgeries. 7. No sexual intercourse, tampons, or douches until you are completely released from the post-operative care. 8. Avoid constipation by eating right and maybe using some Metamucil or Milk of Magnesia. 9. All prescription refills are given during the working hours. Please do no wait till it runs out. Call the clinic at [phone] before your medication runs out. The clinic will get in touch with your doctor to prescribe medications if necessary. 10. Please remain within 40 mile radius from our hospital because emergencies do happen now and then during the post-operative period. 11. If you have stairs at home, take one step at a time slowly and minimize the number of trips. It helps to stay in one floor for the next few days. No lifting except what you can lift by one hand until you are released from the post-operative care. 12. Driving is discouraged until you are well healed. It may be 3-4 weeks before you feel strong enough to drive. You should be able to turn and look through the rear window without pain and you should be able to push the brake pedal very hard without pain before you drive. No fast rules, but SAFETY should be your primary concern. DO NOT drive if you are on sedating medications such as narcotics. 13. Call the clinic (during working hours) to make urgent appointment or go to the Emergency room, if any of the following occurs: i. Vaginal bleeding becomes heavy, more than a period. ii. Incision becomes red and sore, or drains pus. iii. Your temperature is over 100.4 or you have chill. iv. IV site becomes red and swollen (a little ``knot?? is usually OK) v. Persistent nausea and vomiting vi. Persistent constipation or diarrhea vii. Rash or allergic reaction to medications. 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
[2021-06-12 07:40] VITALS: BP 123/72; PULSE 71; RESP 16; TEMP 37; O2SAT 96
== END 2021-06-12 07:50 | disposition home or self-care (01) ==
LOC: OBGYN 10:57
PROVIDERS: Anesthesiology; Admitting Provider Obstetrics & Gynecology; PCP Electrodiagnostic Medicine; Visit Provider Obstetrics & Gynecology
PROC: (CPT 58661; 2021-06-11 08:15)
PROC: (CPT 58661; 2021-06-11 08:15)
DX: G89.29 Other chronic pain (principal); R10.2 Pelvic and perineal pain; N80.9 Endometriosis, unspecified; Z90.710 Acquired absence of both cervix and uterus
CPT/HCPCS: 58661; 36415; 51702; 80053; 85027; 88305; G0378; J0690; J1100; J1170; J1200; J1885; J2250; J2405; J2704; J2710; J3010; J3490; J7030; J7040

== ENCOUNTER 2021-09-09 07:14 | Outpatient (CLI) | payer OTHER, SELFPAY ==
--- NOTE | 2021-09-09 07:27 | USCV_ITS ---
[facility] Age[facility] 41 Gender: F : 1980 Exam Date: 09/09/2021 07:35 Ordering Phys: Donny Cho DO Technologist: Dorothy Palma [place]am [place] [facility] [place] Indication: Holosystolic murmur BP: 130 / 70 HR: 57 Rhythm: Sinus Technical Quality: Adequate MEASUREMENTS (Male / Female) Normal Values 2D ECHO LV Diastolic Diameter PLAX 4.0 cm 4.2 - 5.9 / 3.9 - 5.3 cm LV Systolic Diameter PLAX 2.6 cm LV Chamber Size 3.7 cm IVS Diastolic Thickness 0.8 cm 0.6 - 1.0 / 0.6 - 0.9 cm IVS Systolic Thickness 1.2 cm LVPW Diastolic Thickness 0.9 cm 0.6 - 1.0 / 0.6 - 0.9 cm LVPW Systolic Thickness 1.3 cm RV Chamber Size 2.0 cm LVOT Diameter 2.1 cm LV Ejection Fraction 2D Teich 64.7 % LV Ejection Fraction MOD 2C 24.5 % LV Ejection Fraction 2C AL 28.9 % LA Diameter 2.7 cm LA Width 2.6 cm LA Height 4.6 cm RA Width 3.0 cm RA Height 3.7 cm Aorta at Sinotubular Diameter 2.6 cm IVC Diameter 1.5 cm M-MODE Aortic Annulus Diameter 3.1 cm LA Ao Ratio MM 1.0 MV E Point Septal Separation 0.6 cm DOPPLER AV Peak Velocity 159.0 cm/s LVOT Peak Velocity 91.5 cm/s AV Area Cont Eq vti 1.9 cm squared AV Area Cont Eq pk 2.0 cm squared MV Area PHT 3.7 cm squared Mitral E to A Ratio 1.9 MV E' Velocity 60.5 cm/s Mitral E to MV E' Ratio 7.5 Mitral E to LV E' Lateral Ratio 7.4 Mitral E to LV E' Septal Ratio 7.7 TR Peak Velocity 223.3 cm/s TR Peak Gradient 19.9 mmHg TR Mean Velocity 172.2 cm/s TR Mean Gradient 13.2 mmHg TR Velocity Time Integral 80.0 cm TV Peak E Velocity 61.0 cm/s Right Atrial Pressure 3.0 mmHg Pulmonary Artery Systolic Pressu 22.9 mmHg PV Peak Velocity 79.0 cm/s RV Acceleration Time 0.1 s RV Ejection Time 0.4 s RV AcT/ET 0.3 FINDINGS Left Ventricle Normal left ventricular size, systolic function and wall thickness, with no regional wall motion abnormalities. Left ventricular ejection fraction is estimated at 60 %. Normal diastolic function. Right Ventricle Normal right ventricular size and systolic function. Right ventricular systolic pressure 26 mmHg. Right Atrium Normal right atrial size. Left Atrium Normal left atrial size. Mitral Valve Structurally normal mitral valve. No mitral valve stenosis. No evidence of mitral valve prolapse. Trace mitral valve regurgitation. Aortic Valve Structurally normal trileaflet aortic valve. No aortic valve stenosis. No aortic valve regurgitation. Tricuspid Valve Structurally normal tricuspid valve. Trace tricuspid valve regurgitation. Pulmonic Valve Structurally normal pulmonic valve. No pulmonary valve stenosis. No significant pulmonary valve regurgitation. Pericardium No pericardial effusion. Aorta Normal-sized aortic root. IVC Normal IVC dimension with >50% respiratory change of the inferior vena cava. CONCLUSIONS 1. Normal left ventricular size, systolic function and wall thickness, with no regional wall motion abnormalities. Left ventricular ejection fraction is estimated at 60 %. Normal diastolic function. 2. Normal right ventricular size and systolic function. 3. Structurally normal mitral valve. No evidence of mitral valve prolapse. Trace mitral valve regurgitation. 4. Normal pulmonary artery pressure. 5. No prior similar studies to compare. Mikayla Canales MD (Electronically Signed) Final Date: 10 September 2021 17:39 S
== END 2021-09-09 07:15 | disposition home or self-care (01) ==
PROVIDERS: PCP Electrodiagnostic Medicine; Visit Provider Electrodiagnostic Medicine
DX: R01.1 Cardiac murmur, unspecified (principal); I34.0 Nonrheumatic mitral (valve) insufficiency
CPT/HCPCS: 93306

== ENCOUNTER 2021-10-20 11:06 | Outpatient (CLI) | payer OTHER, SELFPAY ==
[2021-10-20 11:28] VITALS: BMI 26.2
--- NOTE | 2021-10-20 11:30 | ECG_ITS ---
[facility] Test Date: 2021-10-20 Pat Name: Nacho Palma Department: Room: Gender: Female Second Facing Baster: : 1980 Requested By: Aden Lott Order Number: [id number] Jeremie MD: Aden Lott M.D. Interpretive Statements NAME OF STUDY: TREADMILL STRESS TEST INDICATION: [Chest Pain, ] EXERCISE DATA: The patient was exercised by Jesús protocol. Baseline heart rate was 75 beats per minute. Baseline blood pressure was 127/81 millimeters of mercury. Target heart rate was 152 beats per minute. Maximum heart rate achieved was 183 which was 120% of the target heart rate. Maximum blood pressure was 167/63 millimeters of mercury. Total exercise time was 11 minutes. Maximum METs achieved was 13. The reason for ending the test was completion of protocol. The patient complained of shortness of breath during the stress test, which then resolved at the end of the test. ELECTROCARDIOGRAM: BASELINE: Showed sinus rhythm, normal axis, no significant ST-T changes at the baseline noted. [] EXERCISE: At the peak exercise level, [] No significant ST-T changes suggestive of ischemia noted. [] RECOVERY: During the recovery period, heart rate dropped appropriately. No significant ST-T changes in the recovery suggestive of ischemia noted. [] CONCLUSION: 1. Exercise capacity excellent 2. Heart rate response was appropriate 3. Blood pressure response was appropriate 4. Symptoms not suggestive of ischemia. 5. Stress test negative for ischemia Electronically Signed On 11-02-2021 21:50:53 CDT by Aden Lott M.D. [id number]
[2021-10-20 12:00] VITALS: BP 126/74; PULSE 97
== END 2021-10-20 11:07 | disposition home or self-care (01) ==
PROVIDERS: PCP Electrodiagnostic Medicine; Visit Provider Internal Medicine
DX: R07.9 Chest pain, unspecified (principal)
CPT/HCPCS: 93017

== ENCOUNTER 2021-10-27 13:54 | Outpatient (CLI) | payer OTHER, SELFPAY ==
--- NOTE | 2021-10-27 14:15 | US_ITS ---
WS: [id number] RENAL ULTRASOUND HISTORY: RENAL CYST COMPARISON: 04/02/2021 TECHNIQUE: 2-D and color Doppler imaging of the kidney submitted. Right kidney: 9.5 cm x 4.7 cm x 4.3 cm. Normal size kidney with mild diffuse cortical thinning. Junctional zone thinning in the upper pole. N o hydronephrosis or mass. Cortex at its maximum measures 1.0 cm. Left kidney: 9.8 cm x 4.4 cm x 5.1 cm. Normal size kidney. Exophytic cyst from the inferior pole measures 2.1 x 2.7 x 2.4 cm. No solid mass identified. Similar appearance to the cyst as compared to the MRI of 04/02/2021. Aorta: Normal. Urinary Bladder: Normal distention. US/US renal BI* [id number] IMPRESSION: 1. No renal obstruction or solid renal mass. 2. Stable LEFT renal cyst measuring 2.1 x 2.7 x 2.4 cm.
== END 2021-10-27 13:55 | disposition home or self-care (01) ==
PROVIDERS: PCP Electrodiagnostic Medicine; Visit Provider Urology
DX: N28.1 Cyst of kidney, acquired (principal)
CPT/HCPCS: 76770